=== PATIENT | female | born 1985 | race Caucasian/White ===

== ENCOUNTER 2017-05-20 23:03 | Emergency (ER) | payer OTHER ==
[~2017-05-20] VITALS: Ht 165.1 cm; Wt 91.0 kg
[2017-05-20 23:07] VITALS: Ht 165.1 cm; Wt 91.0 kg
--- NOTE | 2017-05-21 00:58 | ERD ---
ER Documentation Chief Complaint Chief Complaint HILARIO s/p hit with baseball yesterday. -KO, -n/v, -visual changes HPI 31-year-old female presents here in emergency department for complaints of right facial pain, headache nausea after head injury yesterday, patient was hit by a baseball on the left side of the face, noted some bruising and pain on the right side of the face, did not hit with anything else. Patient is complaining of headache and facial pain throbbing pain, 6/10 scale, accompanied bruising the right side of the face. Patient denies any blurry vision, vomiting. Patient denies any changes in balance or memory. Patient did not take any medication for pain. ROS All systems reviewed and are negative except as per history of present illness. Medications Home Meds Reported Medications [None] Unknown Strength No Conflict Check 05/21/17 Allergies Allergies: Coded Allergies: No Known Allergy (Unverified , 05/20/17) PMhx/Soc Medical and Surgical Hx: pt denies Medical Hx History of Surgery: Yes (CHOLECYSTECTOMY, RIGHT KNEE SX) Anesthesia Reaction: No Hx Neurological Disorder: No Hx Respiratory Disorders: No Hx Cardiac Disorders: No Hx Psychiatric Problems: No Hx Miscellaneous Medical Probl: No Hx Alcohol Use: No Hx Substance Use: No Hx Tobacco Use: No Smoking Status: Never smoker FmHx Family History: No coronary disease, No diabetes, No other Physical Exam Vitals Vital Signs Date Time Temp Pulse Resp B/P Pulse Ox O2 Delivery O2 Flow Rate FiO2 05/20/17 23:07 98.8 107 18 135/79 100 Physical Exam GENERAL: The patient is well developed and appropriate for usual state of health, in no apparent distress. CHEST: Clear to auscultation bilaterally. There are no rales, wheezes or rhonchi. HEART: Regular rate and rhythm. No murmurs, clicks, rubs or gallops. No S3 or S4. ABDOMEN: Soft, nontender and nondistended. Good bowel sounds. No rebound or guarding. No gross peritonitis. No gross organomegaly or masses. No Siddiqi sign or McBurney point tenderness. BACK: No midline or flank tenderness. EXTREMITIES: Equal pulses bilaterally. There is no peripheral clubbing, cyanosis or edema. No focal swelling or erythema. Full range of motion. Grossly neurovascularly intact. NEURO: Alert and oriented. Cranial nerves 2-12 intact. Motor strength in all 4 extremities with 5/5 strength. Sensation grossly intact. Normal speech and gait. Negative Romberg sign. Negative pronator drift. SKIN: There is no apparent rash or petechia. The skin is warm and dry. HEMATOLOGIC AND LYMPHATIC: There is no evidence of excessive bruising or lymphedema. No gross cervical, axillary, or inguinal lymphadenopathy. Results 24 hrs PROCEDURE: CT Brain without contrast. CLINICAL INDICATION: Head injury, headache and facial pain. TECHNIQUE: A CT of the brain was performed utilizing axial imaging from the skull base through the vertex without IV contrast. Multiplanar reformatted images were made. Images were reviewed on a PACS workstation. The CTDIvol is 43.77 mGy and the DLP is 720.23 mGycm. One or more of the following dose reduction techniques were utilized: 1.) Automated exposure control 2.) Adjustment of the mA +/- kV according to patient's size 3.) Use of iterative reconstruction technique. COMPARISON: None FINDINGS: There is no intracranial hemorrhage, mass effect, or midline shift. No extra- axial fluid collection is seen. The ventricles and sulci are normal in size and configuration. The density of the brain is normal, and the frazier white matter differentiation appears well-preserved. The visualized paranasal sinuses and osseous structures are grossly unremarkable. IMPRESSION: 1. No evidence of acute intracranial pathology. 2. The brain is normal in appearance. RPTAT: [facility] Physician Alexi Date Time Electronically viewed and signed by Physician Alexi on 05/21/2017 01:30 RS/ CC: JACEY LECHUGA NP PROCEDURE: CT facial bones CLINICAL INDICATION: Head and facial trauma. TECHNIQUE: A CT of the facial bones was performed utilizing high-resolution axial images. Sagittal, coronal, and multiplanar reformatted images were made. Additionally, 3-D reformatted images were made. The CTDIvol is 29.44 mGy and the DLP is 528.87 mGy-cm. One or more of the following dose reduction techniques were utilized: 1.) Automated exposure control 2.) Adjustment of the mA +/- kV according to patient's size 3.) Use of iterative reconstruction technique. COMPARISON: None. FINDINGS: The osseous structures are intact with no evidence of fracture. The orbits, as visualized, appear intact. The overlying soft tissues are grossly unremarkable. Mild mucosal thickening left maxillary sinus, indicating mild sinusitis. Otherwise, the visualized paranasal sinuses are clear. IMPRESSION: No acute fracture. RPTAT: [facility] Physician Alexi Date Time Electronically viewed and signed by Physician Alexi on 05/21/2017 01:40 RS/ CC: JACEY LECHUGA RETORT KILN BURNER Procedures/MDM Medical Decision Making: This was consistent with facial contusion and head concussion. There is low suspicion for neurological emergencies at this time since patients neurologic exam is normal. Patient did not have any altered level consciousness, vomiting, changes in balance or memory after incident. Patients CT scan of the head does not show any neurological emergencies at this time. CT scan of the facial bones does not show any fractures. She was given for tramadol for severe pain, Zofran for nausea, is advised to follow-up with primary care doctor 2-3 days for reevaluation of symptoms. Patient was advised to return to emergency department for any worsening symptoms. Dispostion: Home. Stable Disclaimer: Inadvertent spelling and grammatical errors are likely due to EHR/ dictation software use and do not reflect on the overall quality of patient care. Also, please note that the electronic time recorded on this note does not necessarily reflect the actual time of the patient encounter. Departure Diagnosis: Primary Impression: Concussion Encounter type: initial encounter Loss of consciousness presence/duration: without LOC Qualified Code: S06.0X0A - Concussion without loss of consciousness, initial encounter Additional Impression: Facial contusion Encounter type: initial encounter Qualified Code: S00.83XA - Contusion of face, initial encounter Condition: Stable Patient Instructions: Concussion, Facial Contusion, No Wakeup JACEY LECHUGA NP May 21, 2017 00:58
--- NOTE | 2017-05-21 01:30 | RADRPT ---
PROCEDURE: CT Brain without contrast. CLINICAL INDICATION: Head injury, headache and facial pain. TECHNIQUE: A CT of the brain was performed utilizing axial imaging from the skull base through the vertex without IV contrast. Multiplanar reformatted images were made. Images were reviewed on a [employer] workstation. The CTDIvol is 43.77 mGy and the DLP is 720.23 mGycm. One or more of the following dose reduction techniques were utilized: 1.) Automated exposure control 2.) Adjustment of the mA +/- kV according to patient's size 3.) Use of iterative reconstruction technique. COMPARISON: None FINDINGS: There is no intracranial hemorrhage, mass effect, or midline shift. No extra-axial fluid collection is seen. The ventricles and sulci are normal in size and configuration. The density of the brain is normal, and the frazier white matter differentiation appears well-preserved. The visualized paranasal sinuses and osseous structures are grossly unremarkable. IMPRESSION: 1. No evidence of acute intracranial pathology. 2. The brain is normal in appearance. RPTAT: [facility] Physician Alexi Date Time Electronically viewed and signed by Physician Alexi on 05/21/2017 01:30 RS/
--- NOTE | 2017-05-21 01:41 | RADRPT ---
PROCEDURE: CT facial bones CLINICAL INDICATION: Head and facial trauma. TECHNIQUE: A CT of the facial bones was performed utilizing high-resolution axial images. Sagitta l, coronal, and multiplanar reformatted images were made. Additionally, 3-D reformatted images were made. The CTDIvol is 29.44 mGy and the DLP is 528.87 mGy-cm. One or more of the following dose reduction techniques were utilized: 1.) Automated exposure control 2.) Adjustment of the mA +/- kV according to patient's size 3.) Use of iterative reconstruction technique. COMPARISON: None. FINDINGS: The osseous structures are intact with no evidence of fracture. The orbits, as visualized, appear i ntact. The overlying soft tissues are grossly unremarkable. Mild mucosal thickening left maxillary sinus, indicating mild sinusitis. Otherwise, the visualized p aranasal sinuses are clear. IMPRESSION: No acute fracture. RPTAT: [facility] Physician Alexi Date Time Electronically viewed and signed by Physician Alexi on 05/21/2017 01:40 RS/
[2017-05-21] MEDS ORDERED: TRAM50TA2 PO (02:01)
[2017-05-21] MEDS ORDERED: ONDA4TAB14 PO (02:01)
[2017-05-21 02:18] VITALS: BP 130/77; PULSE 98; RESP 18; TEMP 98.8
== END 2017-05-21 02:18 | disposition home or self-care (01) ==
LOC: FTE 23:03
DX: S06.0X0A Concussion without loss of consciousness, initial encounter (principal); S00.83XA Contusion of other part of head, initial encounter; W21.03XA Struck by baseball, initial encounter; Y92.9 Unspecified place or not applicable
CPT/HCPCS: 70450; 70486; Z7502

== ENCOUNTER 2018-04-06 20:17 | Emergency (ER) | END 2018-04-07 00:06 | disposition home or self-care (01) ==